=== PATIENT | female | born 1985 | race Caucasian/White ===

== ENCOUNTER 2016-07-20 01:36 | Emergency (ER) | payer SELFPAY ==
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
[2016-07-20 03:29] VITALS: BP 110/61
== END 2016-07-20 03:28 | disposition home or self-care (01) ==
LOC: ER 01:36 → EEVIPCON 01:36 → ER 03:28
DX: F41.9 Anxiety disorder, unspecified (principal); F43.9 Reaction to severe stress, unspecified; F14.10 Cocaine abuse, uncomplicated; F17.200 Nicotine dependence, unspecified, uncomplicated; Z88.2 Allergy status to sulfonamides
CPT/HCPCS: 99283